=== PATIENT | male | born 1980 | race Caucasian/White ===

== ENCOUNTER 2018-06-09 07:31 | Emergency (ER) | payer OTHER ==
[2018-06-09] MEDS ORDERED: ONDANSETRON 4 MG/2 ML VIAL IVP STA (07:44)
[2018-06-09] MEDS ORDERED: SODIUM CHLORIDE 0.9% 1,000 ML IV STA ×2 (07:44→09:09)
--- NOTE | 2018-06-09 07:49 | ED ---
General Adult HPI - General Chief complaint: Nausea/Vomiting/Diarrhea Stated complaint: fever, body aches Source: patient Mode of arrival: ambulatory Limitations: no limitations - History of Present Illness Initial comments: Dictation was produced using [employer] dictation software. please excuse any grammatical, word or spelling errors. Chief Complaint: 38-year-old male in no serial past medical history presents with nausea, feeling unwell and chills. History of Present Illness: Patient is a 30-year-old male presents with chief complaint of chills. He states that his symptoms started on Tuesday. While he was at work he started to feel sick. Patient describes symptoms as chills and hot flashes that occur intermittently. Patient also complains of some mild right-sided abdominal tenderness. He reports that his tenderness is repercussion is worse in his right lower quadrant. Denies ever having periumbilical tenderness. No diarrhea. Patient denies any history of abdominal surgery. She states that his symptoms have been getting worse prompting him to come to the emergency department today. The ROS documented in this emergency department record has been reviewed and confirmed by me. Those systems with pertinent positive or negative responses have been documented in the HPI. All other systems are other negative and/or noncontributory. - Related Data Previous Rx's Medication Instructions Recorded Azithromycin 250 mg PO DAILY 4 Days #4 tab 06/09/18 Allergies Allergy/AdvReac Type Severity Reaction Status Date / Time No Known Allergies Allergy Verified 06/09/18 09:20 Review of Systems ROS Statement: Those systems with pertinent positive or pertinent negative responses have been documented in the HPI. ROS Other: All systems not noted in ROS Statement are negative. Past Medical History Past Medical History: No Reported History History of Any Multi-Drug Resistant Organisms: None Reported Past Surgical History: No Surgical Hx Reported Past Psychological History: No Psychological Hx Reported Smoking Status: Current every day smoker Past Alcohol Use History: Occasional Past Drug Use History: Marijuana General Exam - General Exam Comments Initial Comments: PHYSICAL EXAM: General Impression: Alert and oriented x3, acute distress, diaphoretic HEENT: Normocephalic atraumatic, extra-ocular movements intact, pupils equal and reactive to light bilaterally, mucous membranes moist. Cardiovascular: Heart regular rate and rhythm, S1&S2 audible, no murmurs, rubs or gallops Chest: Lungs clear to auscultation bilaterally, no rhonchi, no wheeze, no rales Abdomen: Tenderness to palpation of the right upper and right lower quadrant. Worse in the right upper quadrant Musculoskeletal: Pulses present and equal in all extremities, no peripheral edema Motor: Power 5/5 bilaterally, no focal deficits noted Neurological: CN II-XII grossly intact, no focal motor or sensory deficits noted Skin: Intact with no visualized rashes Psych: Normal affect and mood Limitations: no limitations Course Vital Signs 06/09/18 06/09/18 07:33 09:32 Temperature 98.6 F 97.0 F L Pulse Rate 114 H 89 Respiratory 18 18 Rate Blood Pressure 133/87 146/99 O2 Sat by Pulse 99 98 Oximetry Medical Decision Making - Medical Decision Making ED course:-year-old male presents with chief complaint of fever, chills and abdominal pain. Vital signs upon arrival shows tachycardia 114, worse vital signs within normal limits Laboratory evaluation obtained. Patient is leukocytosis of 14.7. Rest of CBC is normal. There is an elevated neutrophil count. Metabolic panel is unremarkable. Except for some mild hyperglycemia. Acute abdominal series is obtained showing nonspecific bowel gas pattern. Ultrasound abdomen showed no acute processes. CT abdomen and pelvis was obtained showing no acute processes however there was findings of left lower lobe pneumonia. Patient given multiple boluses of fluid. Given clinical presentation patient's likely that patient's symptoms are from pneumonia. He is given 500 mg of azithromycin, IV fluids. He is also given Tylenol. Patient observed in emergency department for several hours with stable clinical presentation. Patient does not have significant comorbidities and is only 38. Patient feels comfortable being discharged. He is told to return to the emergency Department with any worsening conditions. Clinical presentation consistent with community acquired pneumonia. He is given 4 day course of azithromycin to be started tomorrow. He did receive 500 mg of azithromycin today. Patient is understandable and agreeable to disposition. - Lab Data Result diagrams: 06/09/18 07:49 06/09/18 07:49 Lab Results 06/09/18 06/09/18 Range/Units 07:49 07:49 WBC 14.7 H (3.8-10.6) k/uL RBC 5.83 (4.30-5.90) m/uL Hgb 17.3 (13.0-17.5) gm/dL Hct 52.4 (39.0-53.0) % MCV 89.8 (80.0-100.0) fL MCH 29.7 (25.0-35.0) pg MCHC 33.1 (31.0-37.0) g/dL RDW 13.0 (11.5-15.5) % Plt Count 193 (150-450) k/uL Neutrophils % 82 % Lymphocytes % 10 % Monocytes % 5 % Eosinophils % 1 % Basophils % 0 % Neutrophils # 12.1 H (1.3-7.7) k/uL Lymphocytes # 1.4 (1.0-4.8) k/uL Monocytes # 0.7 (0-1.0) k/uL Eosinophils # 0.2 (0-0.7) k/uL Basophils # 0.0 (0-0.2) k/uL Sodium 138 (137-145) mmol/L Potassium 4.3 (3.5-5.1) mmol/L Chloride 99 (98-107) mmol/L Carbon Dioxide 23 (22-30) mmol/L Anion Gap 16 mmol/L BUN 16 (9-20) mg/dL Creatinine 0.81 (0.66-1.25) mg/dL Est GFR (CKD-EPI)AfAm >90 (>60 ml/min/1.73 sqM) Est GFR (CKD-EPI)NonAf >90 (>60 ml/min/1.73 sqM) Glucose 132 H (74-99) mg/dL Calcium 9.7 (8.4-10.2) mg/dL Total Bilirubin 0.7 (0.2-1.3) mg/dL AST 31 (17-59) U/L ALT 33 (21-72) U/L Alkaline Phosphatase 91 (38-126) U/L Total Protein 8.1 (6.3-8.2) g/dL Albumin 4.4 (3.5-5.0) g/dL Lipase 36 (23-300) U/L Disposition Clinical Impression: Community acquired pneumonia Disposition: HOME SELF-CARE Instructions: Community Acquired Pneumonia (ED) Prescriptions: Azithromycin 250 mg PO DAILY 4 Days #4 tab Is patient prescribed a controlled substance at d/c from ED?: No Referrals: None,Stated [Primary Care Provider] - 1-2 days Time of Disposition: 10:27
[2018-06-09 08:00] LABS: Basophils % (A) 0 %; Eosinophils # (A) 0.2 k/uL (0-0.7); Eosinophils % (A) 1 %; HCT 52.4 % (39.0-53.0); HGB 17.3 gm/dL (13.0-17.5); Lymphocytes # (A) 1.4 k/uL (1.0-4.8); Lymphocytes % (A) 10 %; MCH 29.7 pg (25.0-35.0); MCHC 33.1 g/dL (31.0-37.0); MCV 89.8 fL (80.0-100.0); Mean Platelet Volume 7.6; Monocytes # (A) 0.7 k/uL (0-1.0); Monocytes % (A) 5 %; Neutrophils # (A) 12.1 k/uL (1.3-7.7); Neutrophils % (A) 82 %; Platelet Count 193 k/uL (150-450); RBC 5.83 m/uL (4.30-5.90); WBC 14.7 k/uL (3.8-10.6)
[2018-06-09] MEDS ORDERED: ACETAMINOPHEN IV (For NPO) 1,000 MG in EMPTY BAG 1 BAG IVPB ONE (08:00)
[2018-06-09 08:14] LABS: ALT 33 U/L (21-72); AST 31 U/L (17-59); Albumin 4.4 g/dL (3.5-5.0); Alkaline Phosphatase 91 U/L (38-126); Anion Gap 16 mmol/L; Blood Urea Nitrogen 16 mg/dL (9-20); Calcium 9.7 mg/dL (8.4-10.2); Carbon Dioxide 23 mmol/L (22-30); Chloride 99 mmol/L (98-107); Glucose 132 mg/dL (74-99); Lipase 36 U/L (23-300); Potassium 4.3 mmol/L (3.5-5.1); Sodium 138 mmol/L (137-145); Total Bilirubin 0.7 mg/dL (0.2-1.3); Total Protein 8.1 g/dL (6.3-8.2)
--- NOTE | 2018-06-09 08:34 | XR ---
EXAMINATION TYPE: Acute abdominal series DATE OF EXAM: 06/09/2018 COMPARISON: NONE HISTORY: 38-year-old male with pain TECHNIQUE: Supine, upright, and left side down lateral decubitus views of the abdomen are obtained. FINDINGS: Frontal view of the chest shows normal heart size, aorta, and pulmonary vasculature. No consolidation or pleural effusion. No evidence for free intraperitoneal air. No dilated small bowel or differential air-fluid levels. There is air seen extending throughout the c olon distally to the rectum. No significant stool burden. No suspicious calcifications. IMPRESSION: 1. No acute cardiopulmonary process. 2. No evidence for free air or bowel obstruction. No significant stool burden.
--- NOTE | 2018-06-09 08:57 | CT ---
EXAMINATION TYPE: CT abdomen pelvis w con DATE OF EXAM: 06/09/2018 COMPARISON: None HISTORY: Fever, body aches CT DLP: 1122 mGycm CONTRAST: CT scan of the abdomen and pelvis is performed without Oral Contrast and with IV Contrast, patient in jected with 100 mL of Isovue 300. FINDINGS: LUNG BASES-: Left lower lobe pneumonia identified with air air bronchograms seen. 6.7 mm nonspecific pulmonary nodule adjacent to the major fissure left lower lobe. CT chest recommended. No additional n odules seen at this time. LIVER/GB: No calcified gallstones. No space occupying hepatic lesion. Biliary tree is of normal ca liber. PANCREAS: No inflammation. No distinct mass. SPLEEN: No splenic enlargement. No lesion seen. ADRENALS: No nodule. No thickening. KIDNEYS/BLADDER: No hydronephrosis. 3 mm nonobstructing calculus mid pole right kidney. Simple cyst left kidney measuring 3 cm. No distinct solid renal mass. Urinary bladder grossly unremarkable. BOWEL: Normal appendix. Normal bowel caliber. No inflammation. GENITAL ORGANS: No gross abnormality. LYMPH NODES: No greater than 1cm abdominal or pelvic lymph nodes are appreciated. AORTA: No significant abnormality. OSSEOUS STRUCTURES: No significant abnormality is seen. OTHER: No significant additional abnormality is seen. IMPRESSION: 1. Left lower lobe pneumonia. 2. Nonspecific pulmonary nodule left lower lobe. 3. Unremarkable abdomen and pelvis.
[2018-06-09] MEDS ORDERED: AZITHROMYCIN 500 MG in SODIUM CHLORIDE 0.9% 250 ML IVPB STA (09:10)
[2018-06-09] MEDS ORDERED: AZITHROMYCIN 500 MG TAB PO STA (09:27)
--- NOTE | 2018-06-09 09:35 | US ---
EXAMINATION TYPE: US abdomen complete DATE OF EXAM: 06/09/2018 COMPARISON: Correlation CT same day CLINICAL HISTORY: 38-year-old male pain with chills, nausea and vomiting, pain TECHNIQUE: Multiple sonographic images of the abdomen are obtained. FINDINGS: EXAM MEASUREMENTS: Liver Length: 17.2 cm Gallbladder Wall: 0.3 cm CBD: 0.3 cm Spleen: 10.5 cm Right Kidney: 13.2 x 6.0 x 6.1 cm Left Kidney: 12.1 x 6.5 x 4.9 cm Pancreas: Obscured by bowel gas Liver: wnl Gallbladder: wnl Evidence for sonographic Horan's sign: No CBD: wnl Spleen: wnl Right Kidney: No hydronephrosis. Left Kidney: No hydronephrosis. Simple cyst lateral/lower pole= 2.5 x 2.3 x 2.5 cm Upper IVC: wnl Abd Aorta: Normal caliber. IMPRESSION: Suboptimal visualization of the pancreas. Otherwise, unremarkable sonographic examination of the abdo men.
[2018-06-09 10:41] VITALS: BP 141/98; PULSE 82; RESP 16; TEMP 98.7
== END 2018-06-09 10:59 | disposition home or self-care (01) ==
LOC: EC 07:31
DX: J18.1 Lobar pneumonia, unspecified organism (principal); R00.0 Tachycardia, unspecified; D72.828 Other elevated white blood cell count; R73.9 Hyperglycemia, unspecified; R61 Generalized hyperhidrosis; R10.813 Right lower quadrant abdominal tenderness; F17.200 Nicotine dependence, unspecified, uncomplicated
CPT/HCPCS: 36415; 93005; 80053; 83690; 85025; 74022; 76700; 74177; 99284; 96365; 96375; 96361 ×2; J2405; J0131; Q9967

== ENCOUNTER 2023-04-15 10:14 | Emergency (ER) | payer OTHER ==
[2023-04-15 10:30] VITALS: RESP 18; TEMP 98
[2023-04-15] MEDS ORDERED: SODIUM CHLORIDE 0.9% 1,000 ML IV STA (10:51)
[2023-04-15] MEDS ORDERED: KETOROLAC 15 MG/ML 1 ML VIAL IVP STA (10:53)
[2023-04-15] MEDS ORDERED: LIDOCAINE 5% PATCH TOPICAL STA (10:55)
[2023-04-15 11:27] LABS: Basophils % (A) 0 %; Eosinophils # (A) 0.2 k/uL (0-0.7); Eosinophils % (A) 2 %; HGB 15.8 gm/dL (13.0-17.5); Lymphocytes # (A) 1.8 k/uL (1.0-4.8); Lymphocytes % (A) 26 %; MCH 29.9 pg (25.0-35.0); MCHC 33.6 g/dL (31.0-37.0); Mean Platelet Volume 8.4; Monocytes # (A) 0.4 k/uL (0-1.0); Monocytes % (A) 6 %; Neutrophils # (A) 4.6 k/uL (1.3-7.7); Neutrophils % (A) 65 %; Platelet Count 224 k/uL (150-450); RBC 5.28 m/uL (4.30-5.90); RDW 12.9 % (11.5-15.5); WBC 7.2 k/uL (3.8-10.6)
[2023-04-15 11:28] LABS: Appearance,Urine Clear (Clear); Bilirubin,Urine Negative (Negative); Blood,Urine Negative (Negative); Color,Urine Light Yellow; Glucose,Urine (UA) Negative (Negative); Ketones,Urine Negative (Negative); Leukocyte Esterase,Urine Negative (Negative); Nitrite,Urine Negative (Negative); PH, Urine 5.5 (5.0-8.0); Protein,Urine Negative (Negative); Specific Gravity,Urine 1.012 (1.001-1.035); Urobilinogen,Urine <2.0 mg/dL (<2.0)
[2023-04-15 11:39] LABS: ALT 25 U/L (4-49); AST 25 U/L (17-59); African American GFR (CKD) >90 (>60 ml/min/1.73 sqM); Albumin 4.2 g/dL (3.5-5.0); Alkaline Phosphatase 66 U/L (38-126); Anion Gap 6 mmol/L; Blood Urea Nitrogen 12 mg/dL (9-20); Calcium 9.1 mg/dL (8.4-10.2); Carbon Dioxide 25 mmol/L (22-30); Chloride 109 mmol/L (98-107); Glucose 103 mg/dL (74-99); Lipase 70 U/L (23-300); Non-African American GFR(CKD) >90 (>60 ml/min/1.73 sqM); Potassium 4.3 mmol/L (3.5-5.1); Sodium 140 mmol/L (137-145); Total Bilirubin 0.6 mg/dL (0.2-1.3); Total Protein 6.9 g/dL (6.3-8.2)
--- NOTE | 2023-04-15 12:25 | CT ---
EXAMINATION TYPE: CT abdomen pelvis w con DATE OF EXAM: 04/15/2023 COMPARISON: 06/09/2018 INDICATION: Left flank and testicular pain. DLP: 1397.1 mGycm, Automated exposure control for dose reduction was used. CONTRAST: 100ml mL of Isovue 300. Study performed without Oral Contrast TECHNIQUE: Axial images were obtained from above the diaphragm to the pubic rami in the axial plane a t 5 mm thick sections. Reconstructed images are reviewed on the computer in the coronal plane. FINDINGS: Limited CT sections are obtained the lung bases. The lung bases are clear. CT ABDOMEN: Liver: Normal Spleen: Normal Pancreas: Normal Adrenal glands: There is mild prominence the right adrenal gland 1.3 cm. Gallbladder: Normal Kidneys: No masses are evident. No hydronephrosis is present. There is a 2.5 cm cyst posterior left mid kidney. Tiny cortical renal cysts on the right mid kidney measuring 1.0 cm. Delayed images were obtained through the kidneys, which remain unremarkable. Aorta: Vascular calcification is within the aorta. Inferior vena cava: Normal. CT PELVIS: Loops of bowel within the abdomen and pelvis are normal. This study is without oral contrast limi ting bowel evaluation. Appendix: Normal as visualized. Urinary bladder: Normal. Genitourinary structures: Prostate is unremarkable. Osseous structures: No suspicious lytic or sclerotic lesions. IMPRESSIONS: 1. Bilateral renal cysts. 2. Mild prominence right adrenal gland.
[2023-04-15] MEDS ORDERED: ACET/COD 300 MG/30 MG STARTER PACK 6 TAB BTL PO STA (12:30)
[2023-04-15] MEDS ORDERED: HYDROmorphone 0.5 MG/0.5 ML SYRINGE IVP STA (12:30)
--- NOTE | 2023-04-15 12:34 | ED ---
Male Urogenital HPI - General Chief complaint: Urogenital Stated complaint: back pain Time Seen by Provider: 04/15/23 10:34 Source: patient Mode of arrival: ambulatory Limitations: no limitations - History of Present Illness Initial comments: Patient is a 43-year-old male who presents to the emergency department for back pain. 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 Pain is in the left lower back. There is some radiation to the left testicle causing mild pain. Back pain is worse with movement of the spine. Denies any numbness and tingling. Denies loss of bowel and bladder function. He does have history of kidney stones denies abdominal and side pain. Denies burning with urination, blood in urine, trouble urinating, penile discharge. No concern for sexually transmitted infections. - Related Data Previous Rx's Medication Instructions Recorded Azithromycin 250 mg PO DAILY 4 Days #4 tab 06/09/18 Cyclobenzaprine [Flexeril] 10 mg PO TID PRN #15 tab 04/15/23 Ibuprofen [Motrin] 800 mg PO Q8HR PRN #30 tab 04/15/23 Lidocaine 5% Patch [Lidoderm 5% 1 patch TOPICAL DAILY PRN #7 patch 04/15/23 Patch] Allergies Allergy/AdvReac Type Severity Reaction Status Date / Time No Known Allergies Allergy Verified 04/15/23 10:30 Review of Systems ROS Statement: Those systems with pertinent positive or pertinent negative responses have been documented in the HPI. ROS Other: All systems not noted in ROS Statement are negative. Past Medical History Past Medical History: No Reported History History of Any Multi-Drug Resistant Organisms: None Reported Past Surgical History: No Surgical Hx Reported Past Psychological History: No Psychological Hx Reported Smoking Status: Never smoker Past Alcohol Use History: Occasional Past Drug Use History: Marijuana General Exam Limitations: no limitations General appearance: alert, in no apparent distress Head exam: Present: atraumatic, normocephalic, normal inspection Eye exam: Present: normal appearance, PERRL, EOMI. Absent: scleral icterus, conjunctival injection, periorbital swelling Respiratory exam: Present: normal lung sounds bilaterally. Absent: respiratory distress, wheezes, rales, rhonchi, stridor Cardiovascular Exam: Present: regular rate, normal rhythm, normal heart sounds. Absent: systolic murmur, diastolic murmur, rubs, gallop, clicks exam: Present: normal inspection, circumcision, other (Cremasteric reflex present). Absent: testicular tenderness, urethral discharge, scrotal swelling, vertical testicular lie External exam: Present: normal external exam. Absent: erythema, swelling, lesions Back exam: Present: normal inspection, tenderness, paraspinal tenderness (lumbar paravertebral ) Neurological exam: Present: alert, oriented X3, CN II-XII intact Expanded Sensory exam: Upper Extremity Light Touch: Normal, Lower Extremity Light Touch: Normal Motor strength exam: RUE: 5, LUE: 5, RLE: 5, LLE: 5 Psychiatric exam: Present: normal affect, normal mood Skin exam: Present: warm, dry, intact, normal color. Absent: rash Course Vital Signs 04/15/23 04/15/23 10:28 12:40 Temperature 98 F Pulse Rate 73 63 Respiratory 18 18 Rate Blood Pressure 137/93 165/89 O2 Sat by Pulse 97 99 Oximetry Medical Decision Making - Medical Decision Making Was pt. sent in by a medical professional or institution (, PA, RESIDENTIAL SALES ASSOCIATE, urgent care, hospital, or [facility]...) When possible be specific @ -No Did you speak to anyone other than the patient for history (EMS, parent, family, police, friend...)? What history was obtained from this source @ -No Did you review nursing and triage notes (agree or disagree)? Why? @ -I reviewed and agree with nursing and triage notes Were old charts reviewed (outside hosp., previous admission, EMS record, old EKG, old radiological studies, urgent care reports/EKG's, [facility] records)? Report findings @ -No old charts were reviewed Differential Diagnosis (chest pain, altered mental status, abdominal pain women, abdominal pain men, vaginal bleeding, weakness, fever, dyspnea, syncope, headache, dizziness, GI bleed, back pain, seizure, CVA, palpatations, mental health)? @ -Differential Back Pain: Strain, zoster, cauda equina syndrome, epidural abscess, vertebral osteomyelitis, discitis, fracture, subluxation, disc herniation, DJD, spinal stenosis, dissection, AAA, pancreatitis, peptic ulcer disease, pyelonephritis, kidney stone, this is not meant to be an all-inclusive list. EKG interpreted by me (3pts min.). @ -As above X-rays interpreted by me (1pt min.). @ -None done CT interpreted by me (1pt min.). @ -Bilateral renal cysts and mild prominence of the right renal gland. No a cute process to explain symptoms U/S interpreted by me (1pt. min.). @ -None done What testing was considered but not performed or refused? (CT, X-rays, U/S, labs)? Why? @ -None What meds were considered but not given or refused? Why? @ -None Did you discuss the management of the patient with other professionals (professionals i.e. , PA, RESIDENTIAL SALES ASSOCIATE, lab, RT, psych nurse, social scientist, reformatory attendant, teacher, staff air tactical officer, family independence case manager)? Give summary @ -No Was smoking cessation discussed for >3mins.? @ -No Was critical care preformed (if so, how long)? @ -No Were there social determinants of health that impacted care today? How? (Homelessness, low income, unemployed, alcoholism, drug addiction, transportation, low edu. Level, literacy, decrease access to med. care, usp, rehab)? @ -No Was there de-escalation of care discussed even if they declined (Discuss DNR or withdrawal of care, Hospice)? DNR status @ -No What co-morbidities impacted this encounter? (DM, HTN, Smoking, COPD, CAD, Cancer, CVA, ARF, Chemo, Hep., AIDS, mental health diagnosis, sleep apnea, morbid obesity)? @ -None Was patient admitted / discharged? Hospital course, mention meds given and route, prescriptions, significant lab abnormalities, going to OR and other per tinent info. @ -Patient presenting with back pain. This appears to be a mechanical back pain however with history of kidney stone and testicular pain I did obtain laboratory studies and CT imaging. Laboratory studies are unremarkable. There is no leukocytosis. Urinalysis is clean no blood. CT interpreted by myself/radiology showing no acute process to explain symptoms. Pain controlled. Results discussed with patient. We did discuss incidental CT findings as well. The left testicle is nonswollen, no erythema, no tenderness. Cremasteric reflex is present. Patient in stable medical condition for discharge. He will be discharged with symptomatic management suspected lumbar strain and will follow up with his primary care provider. Undiagnosed new problem with uncertain prognosis? @ -No Drug Therapy requiring intensive monitoring for toxicity (Heparin, Nitro, Insulin, Cardizem)? @ -No Were any procedures done? @ -No Diagnosis/symptom? @ Mechanical back pain Acute, or Chronic, or Acute on Chronic? Acute Uncomplicated (without systemic symptoms) or Complicated (systemic symptoms)? @ Uncomplicated Side effects of treatment? @ -No Exacerbation, Progression, or Severe Exacerbation? @ -No Poses a threat to life or bodily function? How? (Chest pain, [place], [place], pneumonia, PE, COPD, DKA, ARF, appy, cholecystitis, CVA, Diverticulitis, Homicidal, Suicidal, threat to staff... and all critical care pts) @No Dr. Blackwell is my attending - Lab Data Result diagrams: 04/15/23 11:01 04/15/23 11:01 Lab Results 04/15/23 04/15/23 04/15/23 Range/Units 11:01 11:01 11:01 WBC 7.2 (3.8-10.6) k/uL RBC 5.28 (4.30-5.90) m/uL Hgb 15.8 (13.0-17.5) gm/dL Hct 47.0 (39.0-53.0) % MCV 89.0 (80.0-100.0) fL MCH 29.9 (25.0-35.0) pg MCHC 33.6 (31.0-37.0) g/dL RDW 12.9 (11.5-15.5) % Plt Count 224 (150-450) k/uL MPV 8.4 Neutrophils % 65 % Lymphocytes % 26 % Monocytes % 6 % Eosinophils % 2 % Basophils % 0 % Neutrophils # 4.6 (1.3-7.7) k/uL Lymphocytes # 1.8 (1.0-4.8) k/uL Monocytes # 0.4 (0-1.0) k/uL Eosinophils # 0.2 (0-0.7) k/uL Basophils # 0.0 (0-0.2) k/uL Sodium 140 (137-145) mmol/L Potassium 4.3 (3.5-5.1) mmol/L Chloride 109 H (98-107) mmol/L Carbon Dioxide 25 (22-30) mmol/L Anion Gap 6 mmol/L BUN 12 (9-20) mg/dL Creatinine 0.76 (0.66-1.25) mg/dL Est GFR (CKD-EPI)AfAm >90 (>60 ml/min/1.73 sqM) Est GFR (CKD-EPI)NonAf >90 (>60 ml/min/1.73 sqM) Glucose 103 H (74-99) mg/dL Plasma Lactic Acid Bubba (0.7-2.0) mmol/L Calcium 9.1 (8.4-10.2) mg/dL Total Bilirubin 0.6 (0.2-1.3) mg/dL AST 25 (17-59) U/L ALT 25 (4-49) U/L Alkaline Phosphatase 66 (38-126) U/L Total Protein 6.9 (6.3-8.2) g/dL Albumin 4.2 (3.5-5.0) g/dL Lipase 70 (23-300) U/L Urine Color Light Yellow Urine Appearance Clear (Clear) Urine pH 5.5 (5.0-8.0) Ur Specific [place] 1.012 (1.001-1.035) Urine Protein Negative (Negative) Urine Glucose (UA) Negative (Negative) Urine Ketones Negative (Negative) Urine Blood Negative (Negative) Urine Nitrite Negative (Negative) Urine Bilirubin Negative (Negative) Urine Urobilinogen <2.0 (<2.0) mg/dL Ur Leukocyte Esterase Negative (Negative) 04/15/23 Range/Units 11:01 WBC (3.8-10.6) k/uL RBC (4.30-5.90) m/uL Hgb (13.0-17.5) gm/dL Hct (39.0-53.0) % MCV (80.0-100.0) fL MCH (25.0-35.0) pg MCHC (31.0-37.0) g/dL RDW (11.5-15.5) % Plt Count (150-450) k/uL MPV Neutrophils % % Lymphocytes % % Monocytes % % Eosinophils % % Basophils % % Neutrophils # (1.3-7.7) k/uL Lymphocytes # (1.0-4.8) k/uL Monocytes # (0-1.0) k/uL Eosinophils # (0-0.7) k/uL Basophils # (0-0.2) k/uL Sodium (137-145) mmol/L Potassium (3.5-5.1) mmol/L Chloride (98-107) mmol/L Carbon Dioxide (22-30) mmol/L Anion Gap mmol/L BUN (9-20) mg/dL Creatinine (0.66-1.25) mg/dL Est GFR (CKD-EPI)AfAm (>60 ml/min/1.73 sqM) Est GFR (CKD-EPI)NonAf (>60 ml/min/1.73 sqM) Glucose (74-99) mg/dL Plasma Lactic Acid Bubba 1.0 (0.7-2.0) mmol/L Calcium (8.4-10.2) mg/dL Total Bilirubin (0.2-1.3) mg/dL AST (17-59) U/L ALT (4-49) U/L Alkaline Phosphatase (38-126) U/L Total Protein (6.3-8.2) g/dL Albumin (3.5-5.0) g/dL Lipase (23-300) U/L Urine Color Urine Appearance (Clear) Urine pH (5.0-8.0) Ur Specific [place] (1.001-1.035) Urine Protein (Negative) Urine Glucose (UA) (Negative) Urine Ketones (Negative) Urine Blood (Negative) Urine Nitrite (Negative) Urine Bilirubin (Negative) Urine Urobilinogen (<2.0) mg/dL Ur Leukocyte Esterase (Negative) Disposition Clinical Impression: Mechanical back pain Disposition: HOME SELF-CARE Condition: Good Instructions (If sedation given, give patient instructions): Low Back Strain (ED) Additional Instructions: Take medication as directed. Alternate Tylenol and Motrin every 3-4 hours for pain. Safe Tylenol 3 for severe pain. Do not take Tylenol 3 and Tylenol togeth er. Do not drink alcohol or operate machinery while taking Flexeril as this can cause drowsiness. Continue warm compresses. Follow-up with primary care provider in one to 2 days. You are referred to software computer specialist in the case of symptoms not improving. Return to the emergency department if you experience new, concerning, or worsening symptoms. Prescriptions: Cyclobenzaprine [Flexeril] 10 mg PO TID PRN #15 tab PRN Reason: Muscle Spasm Lidocaine 5% Patch [Lidoderm 5% Patch] 1 patch TOPICAL DAILY PRN #7 patch PRN Reason: Pain Ibuprofen [Motrin] 800 mg PO Q8HR PRN #30 tab PRN Reason: Pain Is patient prescribed a controlled substance at d/c from ED?: No Referrals: Heaven Haywood DO [Primary Care Provider] - 1-2 days Bernabe Arredondo MD [STAFF PHYSICIAN] - 1-2 days
[2023-04-15 12:41] VITALS: BP 165/89; PULSE 63
== END 2023-04-15 13:02 | disposition home or self-care (01) ==
LOC: EC 10:14
DX: N28.1 Cyst of kidney, acquired (principal); M54.9 Dorsalgia, unspecified; F12.90 Cannabis use, unspecified, uncomplicated
CPT/HCPCS: 36415; 80053; 83605; 83690; 85025; 81003; 74177; 99284; 96374; 96375; 96361 ×2; J1885; J1170; Q9967